=== PATIENT | female | born 1935 | race Caucasian/White ===

== ENCOUNTER 2019-03-20 11:10 | Day surgery (SDC) | payer OTHER ==
[~2019-03-20] VITALS: Ht 152.4 cm; Wt 69.1 kg
[~2019-03-20 11:10] MED LIST: SODIUM CHLORIDE 0.9% 1,000 ML ONE
[2019-03-20] MEDS ORDERED: SODIUM CHLORIDE 0.9% 1,000 ML IV ONE (11:30)
[2019-03-20 11:46] LABS: EOSINOPHILS % (AUTO) 2.1 % (1.0-6.0); HEMATOCRIT 30.7 % (36-46); HEMOGLOBIN 10.2 g/dL (12.0-16.0); LYMPHOCYTES # (AUTO) 1.7 K/uL (1.0-4.8); LYMPHOCYTES % (AUTO) 28.5 % (22.0-44.0); MEAN CORPUSCULAR HEMOGLOBIN 28.7 pg (26.0-34.0); MEAN CORPUSCULAR HGB CONC 33.1 G/dL (31.0-37.0); MEAN CORPUSCULAR VOLUME 87 fL (80-100); MONOCYTES # (AUTO) 0.6 K/uL (0.1-1.0); MONOCYTES % (AUTO) 10.5 % (2.0-9.0); NEUTROPHILS # (AUTO) 3.5 K/uL (1.8-7.7); NEUTROPHILS % (AUTO) 57.9 % (40.0-70.0); PLATELET COUNT (AUTO) 332 K/uL (150-450); RED BLOOD CELL COUNT(AUTO) 3.54 MIL/uL (4.00-5.20); RED CELL DISTRIBUTION WIDTH 14.6 % (11.5-14.5)
[2019-03-20 11:55] LABS: CALCIUM, TOTAL 8.9 mg/dL (8.8-10.5); CREATININE 3.15 mg/dL (0.60-1.30); POTASSIUM 5.3 mmol/L (3.5-5.1)
[2019-03-20] MEDS ORDERED: SUCCINYLCHOLINE CHLORIDE 20 MG/ML 10 ML VIAL IVP ONE (12:00)
[2019-03-20] MEDS ORDERED: PROPOFOL 1% 20 ML VIAL IVP ONE (12:00)
[2019-03-20] MEDS ORDERED: FentaNYL CITRATE-PF 100 MCG/2 ML VIAL IVP ONE (12:00)
[2019-03-20] MEDS ORDERED: HEPARIN SODIUM,PORCINE 1,000 UNITS/ML 10 ML VIAL IVP ONE (12:00)
[2019-03-20] MEDS ORDERED: FURO80 PO (12:14)
[2019-03-20] MEDS ORDERED: FERR-89 PO (12:14)
[2019-03-20] MEDS ORDERED: METO50 PO (12:14)
[2019-03-20] MEDS ORDERED: AMLO10TA7 PO (12:14)
[2019-03-20] MEDS ORDERED: LOSA50TA64 PO (12:14)
[2019-03-20] MEDS ORDERED: CHOL200016 PO (12:14)
[2019-03-20] MEDS ORDERED: ATOR20TA86 PO (12:14)
[2019-03-20] MEDS ORDERED: HEPARIN SODIUM 1000 UNITS/NS 500 ML ONE (13:02)
[2019-03-20] MEDS ORDERED: LIDOCAINE/PF 1% 30 ML VIAL ONE (13:02)
[2019-03-20] MEDS ORDERED: CLINDAMYCIN PHOS 150 MG/ML 4 ML VIAL ONE (13:43)
[2019-03-20] MEDS ORDERED: FentaNYL CITRATE-PF 100 MCG/2 ML VIAL IVP PRN (13:45)
[2019-03-20] MEDS ORDERED: MEPERIDINE-PF 25 MG/ML VIAL IVP PRN (13:45)
[2019-03-20] MEDS ORDERED: HYDROmorphone 2 MG/ML SYRINGE IVP PRN (13:45)
== END 2019-03-20 18:00 | disposition home or self-care (01) ==
LOC: SURGERY 11:10
PROVIDERS: ATTEND Surgery
DX: I12.0 Hypertensive chronic kidney disease with stage 5 chronic kidney disease or end stage renal disease (principal); N18.6 End stage renal disease; E78.5 Hyperlipidemia, unspecified; D64.9 Anemia, unspecified; M81.0 Age-related osteoporosis without current pathological fracture; E66.01 Morbid (severe) obesity due to excess calories; Z68.29 Body mass index [BMI] 29.0-29.9, adult; Z90.12 Acquired absence of left breast and nipple; Z85.3 Personal history of malignant neoplasm of breast; Z79.899 Other long term (current) drug therapy
CPT/HCPCS: 36415; 36830; 80048; 85025; 85610; 85730; 93005; C1768; J0330; J1644 ×2; J2704; J3010; J3490 ×2; J7030